=== PATIENT | female | born 1995 | race Two or more races ===

== ENCOUNTER 2018-10-26 00:08 | Emergency (ER) | payer OTHER ==
[2018-10-26] MEDS ORDERED: NS 1,000 ML IV ONE (00:14)
--- NOTE | 2018-10-26 00:18 | EDPHY ---
H & P Stated Complaint: "Nausea all the time but worse the past 2 days", faint, "new BCP" Time Seen by Provider: 10/26/18 00:16 HPI/ROS: HPI CHIEF COMPLAINT: Nausea, syncope HISTORY OF PRESENT ILLNESS: This is a 23-year-old female, she arrives to emergency room by EMS with nausea. Patient states she has been nauseous for about 2 months. 2 and half months ago she was started on a new control. She told her doctor was making her nauseous however has continue taking the control. She felt more nauseous tonight without vomiting she went to the bathroom and sat down on the bathroom toilet thought she was going to vomit but did not do so. And then had a brief syncopal episode. No trauma. Past Medical History: Denies significant medical history Past Surgical History: Denies significant surgical history Social History: Denies daily use of drugs alcohol tobacco. Family History: Noncontributory ROS REVIEW OF SYSTEMS: 10 Systems were reviewed and negative with the exception of the elements mentioned in the history of present illness. Exam Constitutional triage nursing summary reviewed, vital signs reviewed, awake/ alert. Eyes normal conjunctivae and sclera, EOMI, PERRLA. HENT normal inspection, atraumatic, moist mucus membranes, no epistaxis, neck supple/ no meningismus, no raccoon eyes. Respiratory clear to auscultation bilaterally, normal breath sounds, no respiratory distress, no wheezing. Cardiovascular rate normal, regular rhythm, no murmur, no edema, distal pulses normal. Gastrointestinal soft, non-tender, no rebound, no guarding, normal bowel sounds, no distension, no pulsatile mass. Genitourinary no CVA tenderness. Musculoskeletal no midline vertebral tenderness, full range of motion, no calf swelling, no tenderness of extremities, no meningismus, good pulses, neurovascularly intact. Skin pink, warm, & dry, no rash, skin atraumatic. Neurologic awake, alert and oriented x 3, AAOx3, moves all 4 extremities equally, motor intact, sensory intact, CN II-XII intact, normal cerebellar, normal vision, normal speech. Psychiatric normal mood/affect. Heme/Lymph/Immune no lymphadenopathy. Differential Diagnosis: Includes but is not limited to in a particular order dehydration, electrolyte disturbance, acute nausea vomiting, gastritis, pulmonary embolism, vasovagal syncope, orthostatic syncope, cardiac arrhythmia Medical Decision Making: Plan for this patient IV establishment IV fluids, EKG trop, basic labs and re-evaluate. Re-evaluation: EKG interpretation by me on record in [facility] system. Impression time of EKG 0030: Normal sinus rhythm rate of 67 without any signs of acute ischemia or cardiac arrhythmia or prolonged intervals. D-dimer negative. Troponin negative. EKG unremarkable. Chest x-ray negative. 0400AM: Patient re-evaluated this time resting comfortably she was able to p.o. Challenge without any difficulty without any further nausea vomiting she is feeling much better after IV fluids and IV Phenergan. It is possible she is nauseous from control. I do recommend she meets with her doctor discuss his if she needs to be on this control or another 1. She denies any chest pain or shortness of breath. Her abdomen is soft nontender she denies any abdominal pain. She is feeling much better after IV fluids and p. O. Potassium. I will prescribe her Carafate and Phenergan for nausea and GI upset. She does understand return to the emergency room she develops worsening abdominal pain, fever, vomiting, not doing well. Source: Patient - Personal History LMP (Females 10-55): Irregular Current Tetanus Diphtheria and Acellular Pertussis (TDAP): Yes - Medical/Surgical History Hx Asthma: No Hx Chronic Respiratory Disease: No Hx Diabetes: No Hx Cardiac Disease: No Hx Renal Disease: No Hx Cirrhosis: No Hx Alcoholism: No Hx HIV/AIDS: No Hx Splenectomy or Spleen Trauma: No Other PMH: Nausea - Social History Smoking Status: Never smoked Constitutional: Initial Vital Signs Temperature (C) 36.8 C 10/26/18 00:11 Heart Rate 75 10/26/18 00:11 Respiratory Rate 16 10/26/18 00:11 Blood Pressure 122/82 H 10/26/18 00:11 O2 Sat (%) 96 10/26/18 00:11 O2 Delivery Mode Room Air Allergies/Adverse Reactions: No Known Allergies Allergy (Unverified 10/26/18 00:10) Home Medications: Medication Instructions Recorded Bcp 10/26/18 Promethazine HCl 25 mg PO Q6-8PRN PRN #10 tablet 10/26/18 Sucralfate [Carafate 1 GM (*)] 1 gm PO ACHS #30 tab 10/26/18 Medical Decision Making - Data Points Laboratory Results: Laboratory Results 10/26/18 00:30 10/26/18 00:30 10/26/18 10/26/18 10/26/18 00:33 00:30 00:30 WBC RBC Hgb Hct MCV MCH MCHC RDW Plt Count MPV Neut % (Auto) Lymph % (Auto) Hancock % (Auto) Eos % (Auto) Baso % (Auto) Nucleat RBC Rel Count Absolute Neuts (auto) Absolute Lymphs (auto) Absolute Monos (auto) Absolute Eos (auto) Absolute Basos (auto) Absolute Nucleated RBC Immature Gran % Immature Gran # D-Dimer 0.35 ug/mLFEU ug/mLFEU (0.00-0.50) Sodium Potassium Chloride Carbon Dioxide Anion Gap BUN Creatinine Estimated GFR Glucose Calcium Magnesium Total Bilirubin Conjugated Bilirubin Unconjugated Bilirubin AST ALT Alkaline Phosphatase POC Troponin I 0.00 ng/mL ng/mL (0.00-0.08) NT-Pro-B Natriuret Pep Total Protein Albumin Lipase Beta HCG, Qual NEGATIVE 10/26/18 10/26/18 00:30 00:30 WBC 11.72 10^3/uL H 10^3/uL (3.80-9.50) RBC 4.57 10^6/uL 10^6/uL (4.18-5.33) Hgb 13.4 g/dL g/dL (12.6-16.3) Hct 39.9 % % (38.0-47.0) MCV 87.3 fL fL (81.5-99.8) MCH 29.3 pg pg (27.9-34.1) MCHC 33.6 g/dL g/dL (32.4-36.7) RDW 12.7 % % (11.5-15.2) Plt Count 300 10^3/uL 10^3/uL (150-400) MPV 9.8 fL fL (8.7-11.7) Neut % (Auto) 50.9 % % (39.3-74.2) Lymph % (Auto) 42.1 % % (15.0-45.0) Hancock % (Auto) 5.5 % % (4.5-13.0) Eos % (Auto) 1.0 % % (0.6-7.6) Baso % (Auto) 0.3 % % (0.3-1.7) Nucleat RBC Rel Count 0.0 % % (0.0-0.2) Absolute Neuts (auto) 5.96 10^3/uL 10^3/uL (1.70-6.50) Absolute Lymphs (auto) 4.93 10^3/uL H 10^3/uL (1.00-3.00) Absolute Monos (auto) 0.65 10^3/uL 10^3/uL (0.30-0.80) Absolute Eos (auto) 0.12 10^3/uL 10^3/uL (0.03-0.40) Absolute Basos (auto) 0.04 10^3/uL 10^3/uL (0.02-0.10) Absolute Nucleated RBC 0.00 10^3/uL 10^3/uL (0-0.01) Immature Gran % 0.2 % % (0.0-1.1) Immature Gran # 0.02 10^3/uL 10^3/uL (0.00-0.10) D-Dimer Sodium 139 mEq/L mEq/L (135-145) Potassium 3.2 mEq/L L mEq/L (3.5-5.2) Chloride 104 mEq/L mEq/L (97-110) Carbon Dioxide 23 mEq/l mEq/l (22-31) Anion Gap 12 mEq/L mEq/L (6-14) BUN 8 mg/dL mg/dL (7-23) Creatinine 0.6 mg/dL mg/dL (0.6-1.0) Estimated GFR > 60 Glucose 103 mg/dL H mg/dL (70-100) Calcium 9.3 mg/dL mg/dL (8.5-10.4) Magnesium 1.8 mg/dL mg/dL (1.6-2.3) Total Bilirubin 0.2 mg/dL mg/dL (0.1-1.4) Conjugated Bilirubin 0.1 mg/dL mg/dL (0.0-0.5) Unconjugated Bilirubin 0.1 mg/dL mg/dL (0.0-1.1) AST 23 IU/L IU/L (14-46) ALT 17 IU/L IU/L (9-52) Alkaline Phosphatase 64 IU/L IU/L (38-126) POC Troponin I NT-Pro-B Natriuret Pep 42 pg/mL pg/mL (0-125) Total Protein 7.4 g/dL g/dL (6.3-8.2) Albumin 4.4 g/dL g/dL (3.5-5.0) Lipase 162 IU/L IU/L (23-300) Beta HCG, Qual Medications Given: Discontinued Medications Sodium Chloride (Ns) 1,000 mls @ 0 mls/hr IV EDNOW ONE; Wide Open PRN Reason: Protocol Stop: 10/26/18 00:15 Last Admin: 10/26/18 00:26 Dose: 1,000 mls Potassium Chloride (Klor-Con) 20 meq PO ONCE ONE Stop: 10/26/18 01:56 Last Admin: 10/26/18 02:35 Dose: 20 meq Promethazine HCl (Phenergan) 6.25 mg IVP ONCE ONE Stop: 10/26/18 01:59 Last Admin: 10/26/18 02:04 Dose: 6.25 mg Point of Care Test Results: Chemistry 10/26/18 00:33 POC Troponin I 0.00 ng/mL ng/mL (0.00-0.08) Departure - Departure Disposition: Home, Routine, Self-Care Clinical Impression: Nausea Condition: Good Instructions: Syncope (ED), Acute Nausea and Vomiting (ED) Additional Instructions: 1. Rest and stay well-hydrated. 2. Return to the emergency room if you develop worsening nausea vomiting, passing out. 3. Your potassium was noted to be slightly low on her lab work tonight I would recommend eating some potassium containing foods like banana, tomatoes avocado. Referrals: Patient,NotPresent [Unknown] - As per Instructions [facility] [Clinic] - As per Instructions Prescriptions: Promethazine HCl 25 mg PO Q6-8PRN PRN #10 tablet PRN Reason: Nausea/Vomiting, Use 1st Sucralfate [Carafate 1 GM (*)] 1 gm PO ACHS #30 tab
[2018-10-26 00:38] LABS: PLATELET COUNT 300 10^3/uL (150-400)
[2018-10-26] MEDS ORDERED: POTASSIUM CL 20 MEQ TAB PO ONE (01:55)
[2018-10-26] MEDS ORDERED: PROMETHAZINE HCL 25 MG/ML INJ IVP ONE (01:58)
[2018-10-26 04:17] VITALS: BP 119/66
--- NOTE | 2018-10-26 08:03 | CPEKG ---
Test Reason : OPEN Blood Pressure : / mmHG Vent. Rate : 067 BPM Atrial Rate : 063 BPM P-R Int : 176 ms QRS Dur : 075 ms QT Int : 423 ms P-R-T Axes : 059 055 029 degrees QTc Int : 447 ms Sinus rhythm Probable left atrial enlargement Confirmed by Jatin Childs ([id number]) on 10/26/2018 8:02:53 AM Referred By: Jatin Childs Confirmed By:Jatin Childs
== END 2018-10-26 04:10 | disposition home or self-care (01) ==
DX: R11.0 Nausea (principal); R55 Syncope and collapse; E86.9 Volume depletion, unspecified
CPT/HCPCS: 84484-ER; 96374; J2550